=== PATIENT | female | born 2005 | race American Indian/Alaskan Native ===

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

== ENCOUNTER 2023-05-30 13:25 | Inpatient (IN) | payer MEDICAID ==
[2023-05-30] MEDS ORDERED: Tranexamic Acid 1,000 MG in Sodium Chloride 0.9% 100 ML IV PRN (13:42)
[2023-05-30] MEDS ORDERED: Misoprostol 400 MCG (4 X 100 MCG TAB) RECTAL PRN (13:42)
[2023-05-30] MEDS ORDERED: Carboprost Tromethamine 250 MCG/1 ML Amp IM PRN (13:42)
[2023-05-30] MEDS ORDERED: Sodium Chloride 0.9% 10 ML Syringe FLUSH PRN (13:42)
[2023-05-30] MEDS ORDERED: Ondansetron 4 MG/2 ML SDV IVPUSH PRN (13:42)
[2023-05-30] MEDS ORDERED: Methylergonovine 0.2 MG/1 ML Amp IM PRN (13:42)
[2023-05-30] MEDS ORDERED: Lidocaine 1% 30 ML SDV INJECT ONE (13:42)
[2023-05-30] MEDS ORDERED: Acetaminophen 325 MG Tab PO PRN (13:42)
[2023-05-30] MEDS ORDERED: Docusate Sodium 100 MG Cap PO PRN (13:44)
[2023-05-30] MEDS ORDERED: Oxytocin 10 Units/1 ML SDV IM PRN (13:44)
[2023-05-30] MEDS ORDERED: Benzocaine/Menthol 20%-0.5% Spray 78 GM Cannister TOP PRN (13:44)
[2023-05-30] MEDS ORDERED: Simethicone 80 MG Tab.Chew PO PRN (13:44)
[2023-05-30] MEDS ORDERED: Oxytocin/Normal Saline 30 UNIT/500 ML BAG IV SCH (13:45)
[2023-05-30 14:09] LABS: HEMATOCRIT 38.9 % (37.0-47.0); HEMOGLOBIN 12.5 g/dL (12.0-16.0); MEAN CORPUSCULAR HEMOGLOBIN 29.2 pg (27.0-34.0); MEAN CORPUSCULAR HGB CONC 32.1 g/dL (33.0-35.0); MEAN CORPUSCULAR VOLUME 90.9 fL (80-100); RED BLOOD CELL COUNT 4.28 10^6/uL (4.2-5.4); WHITE BLOOD CELL COUNT,WBC 9.3 10^3/uL (5.0-10.0)
[2023-05-30] MEDS ORDERED: Diphtheria,Pertussis(Acell),Tetanus Vaccine 0.5 ML Syringe IM ONE (14:58)
[2023-05-30] MEDS ORDERED: Measles, Mumps & Rubella Vaccine 0.5 ML SDV SUBCUT ONE (14:58)
[2023-05-30 16:50] LABS: HEMOGLOBIN A1C 5.1 % (<5.7)
[2023-05-30 17:13] LABS: AMPHETAMINES,URINE NEGATIVE (NEGATIVE); BARBITURATES,URINE NEGATIVE (NEGATIVE); BENZODIAZEPINE,URINE NEGATIVE (NEGATIVE); MDMA (ECSTASY), URINE NEGATIVE (NEGATIVE); METHADONE,URINE NEGATIVE (NEGATIVE); METHAMPHETAMINES,URINE NEGATIVE (NEGATIVE); OPIATES,URINE NEGATIVE (NEGATIVE); OXYCODONE,URINE NEGATIVE (NEGATIVE); PHENCYCLIDINE,URINE NEGATIVE (NEGATIVE); TCA,URINE NEGATIVE (NEGATIVE)
[2023-05-30] MEDS: Ibuprofen 800 MG Tab PO PRN (18:04)
[2023-05-31 06:47] LABS: HEMATOCRIT 35.5 % (37.0-47.0); HEMOGLOBIN 11.3 g/dL (12.0-16.0); MEAN CORPUSCULAR HGB CONC 31.8 g/dL (33.0-35.0); RED BLOOD CELL COUNT 3.9 10^6/uL (4.2-5.4); WHITE BLOOD CELL COUNT,WBC 9.7 10^3/uL (5.0-10.0)
[2023-05-31] MEDS ORDERED: Prenatal Multivitamin with Calcium/Folic Acid/Iron Tab PO SCH (09:00)
[2023-05-31] MEDS: Ibuprofen 800 MG Tab PO PRN (09:24)
[2023-05-31 16:12] VITALS: BP 118/72; PULSE 72
== END 2023-05-31 15:41 | disposition home or self-care (01) | DRG 807 ==
LOC: DL.OB 13:25 → UNDOADMOB 13:39 → OBSVTOIN 13:41
PROVIDERS: ADMIT Family Medicine; ATTEND Family Medicine
PROC: 10E0XZZ Delivery of Products of Conception, External Approach (ICD-10-PCS; principal; 2023-05-30)
PROC: 10907ZC Drainage of Amniotic Fluid, Therapeutic from Products of Conception, Via Natural or Artificial Opening (ICD-10-PCS; 2023-05-30)
DX: O99.324 Drug use complicating childbirth (principal); Z37.0 Single live birth; O99.214 Obesity complicating childbirth; F12.90 Cannabis use, unspecified, uncomplicated; Z3A.39 39 weeks gestation of pregnancy
CPT/HCPCS: 36415; 59409; 80305-QW; 83036; 85027; 90707; 90715; A9270-GY; G0010; J2590

== ENCOUNTER 2024-06-09 06:41 | Inpatient (IN) | payer MEDICAID ==
[2024-06-09] MEDS ORDERED: Sodium Chloride 0.9% 10 ML Syringe FLUSH PRN (07:18)
[2024-06-09 07:36] LABS: BASOPHILS PERCENT AUTO 0.2 % (0.0-1.0); EOSINOPHILS PERCENT AUTO 0.4 % (1.0-3.0); HEMOGLOBIN 11.7 g/dL (12.0-16.0); LYMPHOCYTES PERCENT AUTO 14.1 % (20.5-50.1); MEAN CORPUSCULAR HEMOGLOBIN 29.1 pg (27.0-34.0); MEAN CORPUSCULAR HGB CONC 32.5 g/dL (33.0-35.0); MEAN CORPUSCULAR VOLUME 89.6 fL (80-100); NEUTROPHILS PERCENT AUTO 79.3 % (42.2-75.2); PLATELET COUNT,PLT 328 10^3/uL (150-450); RED BLOOD CELL COUNT 4.02 10^6/uL (4.2-5.4); WHITE BLOOD CELL COUNT,WBC 11.2 10^3/uL (5.0-10.0)
[2024-06-09] MEDS: Penicillin G Potassium 5 MILLUNITS in Sodium Chloride 0.9% 100 ML IV ONE (08:05)
[2024-06-09 08:10] LABS: ALANINE AMINOTRANSFERASE,ALT 22 U/L (14-59); ALBUMIN 2.3 g/dL (3.4-5.0); ALKALINE PHOSPHATASE 207 U/L (46-116); ANION GAP 13.5 mEq/L (7-13); ASPARTATE AMNIOTRANSFERASE,AST 31 U/L (15-37); BILIRUBIN TOTAL 0.5 mg/dL (0.2-1.0); BLOOD UREA NITROGEN,BUN 3 mg/dL (7-18); BUN/CREATININE RATIO 4.1 (No establ ref range); CALCIUM 8.2 mg/dL (8.5-10.1); CARBON DIOXIDE,CO2 23 mmol/L (21-32); CHLORIDE,CL 106 mmol/L (98-107); CREATININE 0.74 mg/dL (0.55-1.02); EST CRCL DRUG DOSING (CG) 116.94 mL/min; GLUCOSE RANDOM 90 mg/dL (70-99); LIPASE 12 U/L (16-77); MAGNESIUM 1.7 mg/dL (1.8-2.4); POTASSIUM,K 3.5 mmol/L (3.5-5.1); PROTEIN TOTAL,TP 6.8 g/dL (6.4-8.2); SODIUM,NA 139 mmol/L (136-145)
[2024-06-09] MEDS: Lactated Ringers 1,000 ML IV ONE (08:10)
[2024-06-09 08:11] LABS: A/G RATIO 0.51; ESTIMATED GFR 118 mL/min (>=60)
[2024-06-09] MEDS: Oxytocin/Normal Saline 30 UNIT/500 ML BAG IV SCH (08:19)
[2024-06-09] MEDS ORDERED: Acetaminophen 325 MG Tab PO PRN (09:25)
[2024-06-09] MEDS ORDERED: Carboprost Tromethamine 250 MCG/1 ML Amp IM PRN (09:25)
[2024-06-09] MEDS ORDERED: Docusate Sodium 100 MG Cap PO PRN (09:25)
[2024-06-09] MEDS ORDERED: Simethicone 80 MG Tab.Chew PO PRN (09:25)
[2024-06-09] MEDS ORDERED: Oxytocin 10 Units/1 ML SDV IM PRN (09:25)
[2024-06-09] MEDS ORDERED: Benzocaine/Menthol 20%-0.5% Spray 78 GM Cannister TOP PRN (09:25)
[2024-06-09] MEDS ORDERED: Misoprostol 400 MCG (4 X 100 MCG TAB) RECTAL PRN (09:25)
[2024-06-09] MEDS ORDERED: Tranexamic Acid 1,000 MG in Sodium Chloride 0.9% 100 ML IV PRN (09:25)
[2024-06-09] MEDS: Ibuprofen 800 MG Tab PO SCH (09:48)
[2024-06-09] MEDS: Penicillin G Potassium 5,000,000 Unit Vial ONE (13:47)
[2024-06-09] MEDS: Sodium Chloride 0.9% 1,000 ML IV ONE (15:09)
[2024-06-09 19:32] LABS: APPEARANCE,URINE TURBID (CLEAR); BILIRUBIN,URINE NEGATIVE (NEGATIVE); COLOR,URINE RED (YELLOW); GLUCOSE,URINE NEGATIVE (NEGATIVE); KETONES,URINE NEGATIVE (NEGATIVE); LEUKOCYTE ESTERASE,URINE TRACE (NEGATIVE); NITRITE,URINE NEGATIVE (NEGATIVE); OCCULT BLOOD,URINE LARGE (NEGATIVE); PROTEIN,URINE 100 (NEGATIVE)
[2024-06-09 19:39] LABS: AMPHETAMINES,URINE POSITIVE (NEGATIVE); BARBITURATES,URINE NEGATIVE (NEGATIVE); BENZODIAZEPINE,URINE NEGATIVE (NEGATIVE); MDMA (ECSTASY), URINE NEGATIVE (NEGATIVE); METHADONE,URINE NEGATIVE (NEGATIVE); METHAMPHETAMINES,URINE POSITIVE (NEGATIVE); OPIATES,URINE NEGATIVE (NEGATIVE); OXYCODONE,URINE NEGATIVE (NEGATIVE); PHENCYCLIDINE,URINE NEGATIVE (NEGATIVE); TCA,URINE NEGATIVE (NEGATIVE)
[2024-06-09 19:59] LABS: RBC,URINE PACKED /HPF (0-5)
[2024-06-09 20:00] LABS: BACTERIA,URINE FEW /HPF (0-FEW/HPF); EPITHELIAL CELLS,URINE FEW /HPF (NOT SEEN); MUCUS,URINE RARE /LPF (NOT SEEN)
[2024-06-09 20:07] VITALS: BP 106/57; PULSE 65
[2024-06-10] MEDS ORDERED: Prenatal Multivitamin with Calcium/Folic Acid/Iron Tab PO SCH (09:00)
[2024-06-11 14:46] LABS: HEP B SURFACE AG Negative (Negative)
[2024-06-11 18:41] LABS: HCV AB BY CIA INTERP Negative (Negative); HEPC AB BY CIA INDEX 0.18 IV
[2024-06-13 12:41] LABS: C.TRACHOMATIS BY TMA Negative (Negative); N.GONORRHOEAE BY TMA Negative (Negative); SOURCE GENITAL
== END 2024-06-09 21:15 | disposition home or self-care (01) | DRG 807 ==
LOC: DL.ED 06:41 → DL.OB 08:13 → UNDOADMIN 08:16 → UNDODISIN 21:15
PROVIDERS: ADMIT Family Medicine; ATTEND Family Medicine
PROC: 10E0XZZ Delivery of Products of Conception, External Approach (ICD-10-PCS; principal; 2024-06-09)
DX: O99.214 Obesity complicating childbirth (principal); Z3A.38 38 weeks gestation of pregnancy; Z37.0 Single live birth
CPT/HCPCS: 36415; 59409; 76815; 80053; 80305-QW; 81001; 83690; 83735; 84484; 84702; 85025; 86592; 86762; 86803; 86850; 86900; 86901; 87081; 87086; 87088; 87210; 87340; 87389; 87491; 87591; 96374; 99284; 99285-25; A9270-GY; J2540; J2590; J3490; J7120

== ENCOUNTER 2025-08-11 00:08 | Emergency (ER) | payer MEDICAID, OTHER ==
[2025-08-11] MEDS: Acetaminophen/HYDROcodone 325-5 MG Tab PO ONE (00:54)
[2025-08-11] MEDS: Take Home: Acetaminophen/HYDROcodone 325-5 MG, 5 Tab Pack PO ONE (01:13)
[2025-08-11 01:35] VITALS: BP 111/59; PULSE 92
== END 2025-08-11 01:15 | disposition home or self-care (01) ==
LOC: DL.ED 00:08
DX: S30.0XXA Contusion of lower back and pelvis, initial encounter (principal); E66.9 Obesity, unspecified; Z68.37 Body mass index [BMI] 37.0-37.9, adult; Z79.899 Other long term (current) drug therapy; W19.XXXA Unspecified fall, initial encounter
CPT/HCPCS: 72220; 99283; A9270-GY